=== PATIENT | female | born 1990 ===

== ENCOUNTER 2017-09-15 22:09 | Emergency (ER) | payer MEDICAID ==
[2017-09-15 22:18] VITALS: BMI 26.5
[2017-09-15 22:21] VITALS: RESP 18; TEMP 98.2
[2017-09-15] MEDS ORDERED: Albuterol-Ipratrop 3 mg / 0.5 (3 ml) UD IH STA (22:43)
--- NOTE | 2017-09-15 22:43 | ED PDOC ---
Arrival/HPI - General Chief Complaint: Shortness Of Breath Time Seen by Provider: 09/15/17 22:38 Historian: Patient - History of Present Illness Narrative History of Present Illness (Text): 09/15/17 22:38 27 y/o female, no pmh, nkda, c/o and episode of shortness of breath started early this morning. Pt. stated that she was in the office, feeling the chest was tight with shortness of breath, no coughing, no night sweat, no dizziness, no numbness or tingling, no rash, no other medical or psychological complaints. Past Medical History - Provider Review Nursing Documentation Reviewed: Yes - Psychiatric Hx Substance Use: No - Anesthesia Hx Anesthesia: No Family/Social History - Physician Review Nursing Documentation Reviewed: Yes Family/Social History: Unknown Family HX Smoking Status: Never Smoked Hx Alcohol Use: No Hx Substance Use: No Allergies/Home Meds Allergies/Adverse Reactions: Allergies No Known Allergies Allergy (Verified 09/15/17 22:26) Review of Systems - Review of Systems Constitutional: absent: Fatigue, Fevers Eyes: absent: Vision Changes ENT: absent: Hearing Changes Respiratory: SOB. absent: Cough Cardiovascular: absent: Chest Pain Gastrointestinal: absent: Abdominal Pain, Nausea, Vomiting Skin: absent: Rash, Pruritis Neurological: absent: Headache Psychiatric: absent: Anxiety, Depression Physical Exam Vital Signs Reviewed: Yes Vital Signs Temp Pulse Resp BP Pulse Ox 09/16/17 00:25 78 18 127/82 100 09/15/17 23:00 16 100 09/15/17 22:21 98.2 F 81 18 138/75 98 Temperature: Afebrile Blood Pressure: Normal Pulse: Regular Respiratory Rate: Normal Appearance: Positive for: Well-Appearing, Non-Toxic, Comfortable Pain Distress: None Mental Status: Positive for: Alert and Oriented X 3 - Systems Exam Head: Present: Atraumatic, Normocephalic Pupils: Present: PERRL Extroacular Muscles: Present: EOMI Conjunctiva: Present: Normal Mouth: Present: Moist Mucous Membranes Neck: Present: Normal Range of Motion Respiratory/Chest: Present: Clear to Auscultation, Good Air Exchange. No: Respiratory Distress, Accessory Muscle Use, Wheezes, Decreased Breath Sounds, Rales, Retracting, Rhonchi, Tachypneic Cardiovascular: Present: Regular Rate and Rhythm, Normal S1, S2. No: Murmurs Abdomen: Present: Normal Bowel Sounds. No: Tenderness, Distention, Peritoneal Signs Back: Present: Normal Inspection Upper Extremity: Present: Normal Inspection. No: Cyanosis, Edema Lower Extremity: Present: Normal Inspection. No: Edema Neurological: Present: GCS=15, CN II-XII Intact, Speech Normal Skin: Present: Warm, Dry, Normal Color. No: Rashes Psychiatric: Present: Alert, Oriented x 3, Normal Insight, Normal Concentration Medical Decision Making ED Course and Treatment: 09/15/17 22:47 -labs/cardiac enzyme -cxr -ekg -duoneb -observe and reasssess 09/16/17 00:11 -HEART score is 0 -PERC is negative -EKG: NSR @ 77 BPM, no ST elevation or depression, no T wave inversion, no previous ekg for comparison -Chest xray is negative. -Labs are non-significant, negative troponin -Pt. stated that she feels better after the duoneb treatment -There is no emergent further work up indicated at this time, she will need pulmonlogist/pmd and senior resident care director follow up with in 2 days. -Discharge home with albuterol, bed rest, avoid caffeine products, avoid strenuous exercise or activity, follow up with your own pmd/fabric worker supervisor/ senior resident care director within 2 days, return to the ER for any new or worsening signs or symptoms. - Lab Interpretations Lab Results: 09/15/17 23:00 09/15/17 23:00 Lab Results 09/15/17 23:00: WBC 7.8, RBC 4.38, Hgb 12.2, Hct 36.9, MCV 84.2, MCH 27.9, MCHC 33.1, RDW 12.9, Plt Count 267, MPV 9.0, Gran % 47.8 L, Lymph % (Auto) 46.3 H, [place] % (Auto) 5.0, Eos % (Auto) 0.6 L, Baso % (Auto) 0.3, Gran # 3.72, Lymph # ( Auto) 3.6 H, [place] # (Auto) 0.4, Eos # (Auto) 0.1, Baso # (Auto) 0.02 09/15/17 23:00: Sodium 139, Potassium 3.9, Chloride 102, Carbon Dioxide 29, Anion Gap 12, BUN 16, Creatinine 0.6 L, Est GFR ( Amer) > 60, Est GFR ( Non-Af Amer) > 60, Random Glucose 98, Calcium 9.9, Total Bilirubin 0.2, AST 34, ALT 42, Alkaline Phosphatase 59, Lactate Dehydrogenase 463, Total Creatine Kinase 79, Troponin I < 0.01, Total Protein 8.1, Albumin 4.7, Globulin 3.4, Albumin/Globulin Ratio 1.4 Interpretation: No sign. 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 Disposition/Present on Arrival - Present on Arrival Any Indicators Present on Arrival: No History of DVT/PE: No History of Uncontrolled Diabetes: No Urinary Catheter: No History of Decub. Ulcer: No History Surgical Site Infection Following: None - Disposition Have Diagnosis and Disposition been Completed?: Yes Diagnosis: General medical exam Disposition: HOME/ ROUTINE Disposition Time: 00:14 Patient Plan: Discharge Condition: GOOD Additional Instructions: -Discharge home with albuterol, bed rest, avoid caffeine products, avoid strenuous exercise or activity, follow up with your own pmd/fabric worker supervisor/ senior resident care director within 2 days, return to the ER for any new or worsening signs or symptoms. Prescriptions: Albuterol HFA [Ventolin HFA 90 mcg/actuation (8 g)] 2 puff IH [id number] PRN #1 inhaler PRN Reason: Cough Referrals: [facility] [place] [Outside] - Follow up with primary Osmany Pinon MD [Staff Provider] - Follow up with primary Bernard Goldberg MD [Staff Provider] - Follow up with primary Forms: SCHOOL NOTE
[2017-09-15 23:26] LABS: BASO # 0.02 K/mm3 (0.0-2.0); BASO % 0.3 % (0.0-3.0); EOS # 0.1 (0.0-0.7); EOS % 0.6 % (1.5-5.0); GRAN # 3.72 (1.4-6.5); GRAN % 47.8 % (50.0-68.0); HEMOGLOBIN 12.2 g/dL (12.0-16.0); LYMPH # 3.6 (1.2-3.4); LYMPH % 46.3 % (22.0-35.0); MEAN CELL VOLUME 84.2 fl (80.0-105.0); MEAN CORPUSCULAR HEMOGLOBIN 27.9 pg (25.0-35.0); MEAN CORPUSCULAR HGB CONC 33.1 g/dl (31.0-37.0); MONO # 0.4 (0.1-0.6); RBC 4.38 10^6/uL (3.5-6.1); RED CELL DISTRIBUTION WIDTH 12.9 % (11.5-14.5); WHITE BLOOD COUNT 7.8 10^3/ul (4.5-11.0)
[2017-09-15 23:35] LABS: ALB/GLOB RATIO 1.4 (1.1-1.8); ALBUMIN 4.7 g/dL (3.0-4.8); ALT/SGPT 42 U/L (7-56); AST/SGOT 34 U/L (14-36); BLOOD UREA NITROGEN 16 mg/dL (7-21); CALCIUM 9.9 mg/dL (8.4-10.5); GFR AFRICAN-AMERICAN > 60; GFR NON-AFRICAN AMERICAN > 60
[2017-09-15 23:52] LABS: TROPONIN I < 0.01 ng/mL
[2017-09-16 00:47] VITALS: BP 127/82; PULSE 78; O2SAT 100
--- NOTE | 2017-09-16 08:00 | RAD ---
HISTORY: shortness of breath COMPARISON: No prior. FINDINGS: LUNGS: No active pulmonary disease. PLEURA: No significant pleural effusion identified, no pneumothorax apparent. CARDIOVASCULAR: Normal. OSSEOUS STRUCTURES: No significant abnormalities. VISUALIZED UPPER ABDOMEN: Normal. OTHER FINDINGS: None. IMPRESSION: No active disease. Concordant results with the preliminary interpretation rendered by the emergency department physician procedure.
--- NOTE | 2017-09-16 14:58 | CARD ---
APPROVED REPORT EKG Measurement Heart [id number] <Conclusion> Normal sinus rhythm with sinus arrhythmia Early repolarization pattern Normal ECG
== END 2017-09-16 00:30 | disposition home or self-care (01) ==
LOC: ED 22:09
DX: Z00.00 Encounter for general adult medical examination without abnormal findings (principal)